=== PATIENT | male | born 1955 | race Caucasian/White ===

== ENCOUNTER 2018-09-08 09:07 | Emergency (ER) | payer BC ==
[2018-09-08 10:24] VITALS: BP 136/74
[2018-09-08] MEDS ORDERED: Tetan/Diph/Pertus SYR(Tdap)* 0.5 ML SYR(BOOSTRIX) use SYR IM ONE (10:35)
--- NOTE | 2018-09-08 10:55 | UC ---
Skin Complaint HPI - HPI Summary HPI Summary: Pt presents with c/o stepping on nail yesterday while working on outdoor deck. Pt unsure of last tetanus. Pt is here for booster. - History of Current Complaint Chief Complaint: [employer] Time Seen by Provider: 09/08/18 10:30 Stated Complaint: RT FOOT INJURY Hx Obtained From: Patient Onset/Duration: Sudden Onset, Still Present Skin Exposure Onset/Duration: Days Ago - 1 Timing: Constant Onset Severity: Moderate Current Severity: Mild Pain Intensity: 3 Pain Scale Used: 0-10 Numeric Location: Discrete - right foot Character: Redness, Painful Aggravating Factor(s): Touch Alleviating Factor(s): Other - warm sopay soak Associated Signs & Symptoms: Positive: Negative Related History: Trauma - stepped on nail - Allergy/Home Medications Allergies/Adverse Reactions: Allergies Allergy/AdvReac Type Severity Reaction Status Date / Time Penicillins Allergy Unknown Verified 09/08/18 10:19 Reaction Details Sulfa (Sulfonamide Allergy Rash Verified 09/08/18 10:19 Antibiotics) Home Medications: Home Medications Aspirin TAB* [Aspirin 325 MG TAB*] 325 mg PO DAILY 09/08/18 [History Confirmed 09/08/18] Olmesartan Medoxomil [Benicar] 40 mg PO DAILY 09/08/18 [History Confirmed ] Simvastatin 20 mg PO DAILY 09/08/18 [History Confirmed 09/08/18] amLODIPine TAB* [Norvasc 5 mg TAB*] 2.5 mg PO DAILY 09/08/18 [History Confirmed 09/08/18] PMH/Surg Hx/FS Hx/Imm Hx Previously Healthy: Yes Endocrine History: Dyslipidemia Cardiovascular History: Cardiac Disease - Surgical History Surgical History: Yes Surgery Procedure, Year, and Place: stent - Family History Known Family History: Positive: Cardiac Disease - Social History Occupation: Employed Full-time Lives: With Family Alcohol Use: Occasionally Substance Use Type: None Smoking Status (MU): Never Smoked Tobacco Have You Smoked in the Last Year: No - Immunization History Vaccination Up to Date: No Review of Systems All Other Systems Reviewed And Are Negative: Yes Constitutional: Positive: Negative Skin: Positive: Other - puncture wound right foot, plantar aspect Eyes: Positive: Negative ENT: Positive: Negative Respiratory: Positive: Negative Cardiovascular: Positive: Negative Gastrointestinal: Positive: Negative Genitourinary: Positive: Negative Motor: Positive: Negative Neurovascular: Positive: Negative Musculoskeletal: Positive: Myalgia - at puncture site, mild tenderness Neurological: Positive: Negative Psychological: Positive: Negative Is Patient Immunocompromised?: No Physical Exam Triage Information Reviewed: Yes Appearance: Well-Appearing Vital Signs: Initial Vital Signs Temp 97.6 F 09/08/18 10:20 Pulse 59 09/08/18 10:20 Resp 15 09/08/18 10:20 BP 136/74 09/08/18 10:20 Pulse Ox 100 09/08/18 10:20 Vital Signs Reviewed: Yes Eye Exam: Normal ENT: Positive: Hearing grossly normal Dental Exam: Normal Neck exam: Normal Respiratory: Positive: No respiratory distress Musculoskeletal Exam: Normal Neurological Exam: Normal Psychological Exam: Normal Skin Exam: Other - small puncture wound that is mildly tender at site Course/Dx - Differential Diagnoses - Skin Complaint Differential Diagnoses: MRSA - Diagnoses Provider Diagnosis: Puncture wound of right foot Discharge - Sign-Out/Discharge Documenting (check all that apply): Patient Departure All imaging exams completed and their final reports reviewed: No Studies - Discharge Plan Condition: Stable Disposition: HOME Patient Education Materials: Puncture Wound (ED), Tdap and Td Vaccines for Adults (ED) Referrals: Rhonda Lebron PA [Primary Care Provider] - If Needed Additional Instructions: Please keep the wound clean and monitor for signs or symptoms of infection such as but not limited to increased tenderness, redness and drainage. - Billing Disposition and Condition Condition: STABLE Disposition: Home
== END 2018-09-08 10:47 | disposition home or self-care (01) ==
LOC: UCCORT 09:07 → MERGE 09:07 → UCCORT 10:47
DX: S91.331A Puncture wound without foreign body, right foot, initial encounter (principal); W22.8XXA Striking against or struck by other objects, initial encounter; Y93.9 Activity, unspecified; Y92.9 Unspecified place or not applicable; Z88.0 Allergy status to penicillin; Z88.2 Allergy status to sulfonamides; E78.5 Hyperlipidemia, unspecified
CPT/HCPCS: 90471; 90715; 99211; G0463